=== PATIENT | female | born 1980 | race Caucasian/White ===

== ENCOUNTER 2025-01-21 12:52 | Outpatient (CLI) | payer OTHER, SELFPAY ==
--- NOTE | ~2025-01-21 | XR_ITS ---
EXAMINATION: XR hip BI wo pelvis, 01/21/2025 14:00 MRI SPECIAL PROCEDURES TECHNOLOGIST HISTORY: BI hip pain COMPARISON: No comparisons available. Findings: No acute fracture or malalignment. No significant degenerative changes. Soft tissues unremarkable. Impression: No acute fracture or malalignment. Reviewed, dictated and finalized at location P. SPECIAL PROCEDURES TECHNOLOGIST Impression: No acute fracture or malalignment.
--- NOTE | ~2025-01-21 | XR_ITS ---
XR thoracic spine 3V Indication: pain and radiculopathy in whole spine Comparison: None Findings: The vertebral heights are intact. No fracture or subluxation. The disc heights are intact. Soft tissues unremarkable Impression: No acute abnormality. Reviewed, dictated and finalized at location P. ICULTURE TEACHER Impression: No acute abnormality.
--- NOTE | ~2025-01-21 | XR_ITS ---
EXAMINATION: XR knee LT 3V, XR knee RT 3V DATE: 01/21/2025 14:23 INDICATION: Bilateral knee pain. TECHNIQUE: AP lateral and oblique views of both knees, nonweightbearing were obtained. COMPARISON: None. FINDINGS: No acute bony lesions. Grade 2 to grade 3 degenerative changes of medial compartment of both knee joints. Soft tissues are unremarkable. IMPRESSION: 1. Moderate degenerative changes of medial compartment of both knee joints. Reviewed, dictated and finalized at location T. CAL CLINIC MANAGER IMPRESSION: 1. Moderate degenerative changes of medial compartment of both knee joints.
--- NOTE | ~2025-01-21 | XR_ITS ---
EXAMINATION: Lumbosacral spine 3 views: DATE: 01/21/2025 INDICATION: Low back pain. TECHNIQUE: 3 views of lumbar spine were obtained. COMPARISON: MRI lumbar spine dated 02/26/2019. FINDINGS: Transitional lumbosacral junction is noted. There are 6 nonrib-bearing lumbar vertebrae. Severe facet arthropathy at L5 L6 level with first-degree anterolisthesis. Lesser degree of facet arthropathy at L4-5 level. Degenerative disc disease at the lumbosacral junction. IMPRESSION: 1. Transitional lumbosacral junction with 6 nonrib-bearing lumbar vertebrae. 2 significant facet arthropathy at L5 L6 level with minimal first degree anterolisthesis of L5 on L6. Please note that this disc was labeled as L4-L5 on the MRI report of 02/26/2019. 2. Degenerative disc changes at the lumbosacral junction. Reviewed, dictated and finalized at location T. SFER AND PUMPHOUSE OPERATOR IMPRESSION: 1. Transitional lumbosacral junction with 6 nonrib-bearing lumbar vertebrae. 2 significant facet arthropathy at L5 L6 level with minimal first degree anteroli sthesis of L5 on L6. Please note that this disc was labeled as L4-L5 on the MRI report of 02/26/2019. 2. Degenerative disc changes at the lumbosacral junction.
--- NOTE | ~2025-01-21 | XR_ITS ---
EXAMINATION: XR shoulder RT min 2V, XR shoulder LT min 2V DATE: 01/21/2025 14:23 INDICATION: Bilateral shoulder pain. Neck pain. TECHNIQUE: 3 views of both shoulders were obtained. COMPARISON: None. FINDINGS: No acute bony lesions. Glenohumeral joint spaces are normal. Mild degenerative changes of AC joints are noted. Soft tissues are unremarkable. IMPRESSION: 1. Mild degenerative changes of acromioclavicular joints on both sides. Reviewed, dictated and finalized at location T. RAIL HELPER IMPRESSION: 1. Mild degenerative changes of acromioclavicular joints on both sides.
--- NOTE | ~2025-01-21 | XR_ITS ---
EXAMINATION: C-spine views: DATE: 01/21/2025. INDICATION: Neck pain. Shoulder pain. TECHNIQUE: 3 views of C-spine were obtained. COMPARISON: None. FINDINGS: No acute bony lesions. Significant loss of disc space at C4-5 level. Loss of cervical lordosis indicating paravertebral muscle spasm. IMPRESSION: 1. Significant degenerative changes of C4-5 disc. Evidence of reversal of cervical lordosis. Reviewed, dictated and finalized at location T. ERSHIP COORDINATOR IMPRESSION: 1. Significant degenerative changes of C4-5 disc. Evidence of reversal of cervi sumaya lordosis.
--- NOTE | ~2025-01-21 | US_ITS ---
US right upper quadrant Indication: fatty liver Comparison: None Technique: Keyes-scale and color Doppler images were obtained. Findings: LIVER: Mild increased echogenicity of the liver. . GALLBLADDER/BILIARY: Post cholecystectomy. CBD 1.3 cm. Dawson sign negative. PANCREAS: Pancreas limited by bowel gas. Right Kidney: The right kidney was not imaged. Impression: Mild hepatic steatosis Reviewed, dictated and finalized at location P. UET STEWARD Impression: Mild hepatic steatosis
== END 2025-01-21 12:53 | disposition home or self-care (01) ==
PROVIDERS: PCP Internal Medicine; Visit Provider Internal Medicine Endocrinology, Diabetes & Metabolism
DX: M19.011 Primary osteoarthritis, right shoulder (principal); M19.012 Primary osteoarthritis, left shoulder; M47.812 Spondylosis without myelopathy or radiculopathy, cervical region; M43.16 Spondylolisthesis, lumbar region; M17.0 Bilateral primary osteoarthritis of knee; M25.552 Pain in left hip; M25.551 Pain in right hip; M54.12 Radiculopathy, cervical region; M25.519 Pain in unspecified shoulder; M54.14 Radiculopathy, thoracic region; M54.16 Radiculopathy, lumbar region; M54.17 Radiculopathy, lumbosacral region; K76.0 Fatty (change of) liver, not elsewhere classified; M51.369 Other intervertebral disc degeneration, lumbar region without mention of lumbar back pain or lower extremity pain; M47.817 Spondylosis without myelopathy or radiculopathy, lumbosacral region; M47.816 Spondylosis without myelopathy or radiculopathy, lumbar region; M48.061 Spinal stenosis, lumbar region without neurogenic claudication; M40.03 Postural kyphosis, cervicothoracic region; M51.370 Other intervertebral disc degeneration, lumbosacral region with discogenic back pain only; M43.17 Spondylolisthesis, lumbosacral region; M53.2X6 Spinal instabilities, lumbar region; Z90.49 Acquired absence of other specified parts of digestive tract
CPT/HCPCS: 72040; 72072; 72100; 73030; 73521; 73562; 76705